=== PATIENT | male | born 1970 | race African-American/Black ===

== ENCOUNTER 2016-08-02 03:28 | Emergency (ER) | payer OTHER ==
[~2016-08-02] VITALS: Ht 175.3 cm; Wt 81.6 kg
[2016-08-02] MEDS ORDERED: NKM (03:42)
[2016-08-02] MEDS ORDERED: Bacitracin Oint UD TOPIC ONE ×2 (04:44→04:45)
[2016-08-02] MEDS ORDERED: CIPROFLOXACIN500 M2 ORAL (04:48)
[2016-08-02] MEDS ORDERED: ACETAMINOPHEN-1 EAC1 ORAL (04:48)
[2016-08-02 04:58] VITALS: BP 117/82
[2016-08-02] MEDS ORDERED: Ciprofloxacin 500mg tab ORAL ONE (05:00)
[2016-08-02 05:04] VITALS: BP 117/82
--- NOTE | 2016-08-02 05:12 | Emergency Room Report ---
History of Present Illness General Chief Complaint: Upper Extremity Injury Source: Patient Present Illness HPI 46-year-old male presents to ED complaining of injury to his left hand. States that yesterday afternoon he accidentally ruptured his left index finger with a sewing needle. States that the needle was in his bag. Patient is here stating that the needle is stuck in his left index finger. Tetanus up-to-date. Denies any other injuries. Pain is throbbing, 9/10, nonradiating. No other aggravating or relieving factors. Denies any other associated symptoms Allergies: Coded Allergies: PENICILLINS (Verified Allergy, Unknown, 08/02/16) Patient History Past Medical History: none Past Surgical History: none Pertinent Family History: none Social History: Denies: alcohol use, drug use, smoking Immunizations: UTD Reviewed Nursing Documentation: PMH: Agreed, PSxH: Agreed Nursing Documentation-PMH Past Medical History: No Stated History Review of Systems All Other Systems: negative except mentioned in HPI Physical Exam Vital Signs Date Time Temp Pulse Resp B/P Pulse Ox O2 Delivery O2 Flow Rate FiO2 08/02/16 03:35 98.2 120 18 143/90 96 Room Air Sp02 EP Interpretation: reviewed, normal General Appearance: alert, GCS 15, non-toxic, mild distress Head: normocephalic Eyes: bilateral eye PERRL, bilateral eye normal inspection ENT: normal ENT inspection Neck: normal inspection Respiratory: normal inspection Cardiovascular #1: normal inspection Gastrointestinal: normal inspection Rectal: deferred Genitourinary: no CVA tenderness Musculoskeletal: other - needle inserted into tip of L index finger. no erythema/discharge surrounding puncture site Neurologic: alert, oriented x3, responsive, motor strength/tone normal, sensory intact, speech normal Psychiatric: normal inspection Skin: normal inspection Lymphatic: normal inspection Procedures Additional Procedure Procedure Narrative Foreign body removal: Patient placed in supine position. Affected hand on a procedure table with sterile dressings. I used lidocaine to apply digital block. Using forceps I was able to gain traction on the needle and pull, successfully removing the needle from the finger. The needle is intact with no evidence of foreign body remaining inside the finger. Patient tolerated procedure without difficulty Medical Decision Making Diagnostic Impression: Primary Impression: Puncture wound ER Course 46-year-old male presents ED complaining of pain with sewing needle embedded into left index finger Differential-foreign body, cellulitis, abscess Patient placed on stretcher. After initial history and physical I ordered x- rays of left hand which shows some initial is embedded into the soft tissue of the distal aspect of left index finger but not into the bone. Digital block applied. Wound irrigated. Using traction we're able to remove the needle entirely from the finger. Wound irrigated. Dressing applied. Antibiotics given Diagnosis-puncture wound Stable discharged to home with prescription for Cipro. Wound care instructions given. Followup with PMD. Return to ED if symptoms recur or worsen Other X-Ray Diagnostic Results Other X-Ray Diagnostic Results : X-Ray Ordered: L hand EP Interpretation: Yes Findings: no fractures, no dislocation, no soft tissue swelling, other - needle embeddedd into soft tissue distal aspect L index finger. Number of Views: 3 Last Vital Signs Date Time Temp Pulse Resp B/P Pulse Ox O2 Delivery O2 Flow Rate FiO2 08/02/16 04:58 98.2 91 18 117/82 96 Room Air Status: improved Disposition: HOME, SELF-CARE Condition: Stable Scripts Ciprofloxacin Hcl* (CIPROFLOXACIN HCL*) 500 Mg Tablet 500 MG ORAL Q12H, #14 TAB 0 Refills Prov: VASQUEZ LAO M.D. 08/02/16 Acetaminophen With Codeine (T#3) (TYLENOL #3 TAB*) Y Tab 1 TAB ORAL Q8H Y for For Pain, #20 TAB Prov: VASQUEZ LAO M.D. 08/02/16 Patient Instructions: Puncture Wound, [id number] VASQUEZ LAO M.D. Aug 02, 2016 05:11
--- NOTE | 2016-08-02 11:09 | Diagnostic Imaging Report ---
Indication: pain Findings: 3 views of the left hand were obtained. Normal bony mineralization and alignment are demonstrated. No acute fractures, erosions, or periosteal reaction are seen. Soft tissues are unremarkable. Impression: Negative examination of the left hand.
== END 2016-08-02 05:06 | disposition home or self-care (01) ==
LOC: EMR 04:15
DX: S61.231A Puncture wound without foreign body of left index finger without damage to nail, initial encounter (principal); Z88.0 Allergy status to penicillin; W26.8XXA Contact with other sharp object(s), not elsewhere classified, initial encounter; W45.8XXA Other foreign body or object entering through skin, initial encounter; Y92.9 Unspecified place or not applicable; Y99.8 Other external cause status
CPT/HCPCS: 10120; 73130; 99283; Z7502